=== PATIENT | male | born 1990 | race Two or more races ===

== ENCOUNTER 2024-11-28 06:27 | Day surgery (SDC) | payer BC, SELFPAY | END 2024-11-28 10:50 | disposition home or self-care (01) | LOC: GI 06:27 | PROVIDERS: ATTENDING PHYSICIAN Internal Medicine Gastroenterology | DX: K44.9 Diaphragmatic hernia without obstruction or gangrene (principal); K22.89 Other specified disease of esophagus; K29.70 Gastritis, unspecified, without bleeding; K21.9 Gastro-esophageal reflux disease without esophagitis | CPT/HCPCS: 43239; 88305; 88342 ==